=== PATIENT | female | born 1955 | race Caucasian/White ===

== ENCOUNTER 2022-05-11 22:32 | Inpatient (IN) | payer MEDICARE, BC ==
[~2022-05-11] VITALS: Ht 152.4 cm; Wt 104.3 kg
--- NOTE | 2022-05-11 23:08 | NUR ---
TO ER BED 9. [id number] C/O L LEG PAIN X4DAYS STAFF ALSO CONCERED OF LOW O2 SAT AT 80S. HX LUNG CANCER. PT AAOX4. NORMALLY AMBULATES WITH ASSISTANCE. ADÁN INPLACE FROM FACILITY. BREATHING IS EVEN AND NON LABORED, CONNECTED TO 2L O2 NASAL CANNULA, O2 SAT 94 NOTED. CONNECTED TO MONITOR. AWAITING MD ARREOLA
--- NOTE | 2022-05-12 00:02 | NUR ---
IV LINE ESTABLISHED, LAC 20G. BLOOD COLLECTED AND SENT TO LAB
--- NOTE | 2022-05-12 00:02 | NUR ---
COVID ANTIGEN SWAB COLLECTED
--- NOTE | 2022-05-12 00:03 | NUR ---
SANDEE VILLARREAL AT BEDSIDE FOR EKG
[2022-05-12 00:25] LABS: BASOPHILS % (AUTO) 0.3 % (0.0-2.0); HEMATOCRIT 29 % (39-51); HEMOGLOBIN 9.9 g/dL (13.5-17.5); LYMPHOCYTES # (AUTO) 2.1 K/uL (0.8-4.8); LYMPHOCYTES % (AUTO) 33.8 % (20.0-44.0); MEAN CORPUSCULAR HGB CONC 34 g/dl (31.0-36.0); MEAN CORPUSCULAR VOLUME 90 fL (80-96); MONOCYTES # (AUTO) 0.9 K/uL (0.1-1.30); MONOCYTES % (AUTO) 15.1 % (2.0-12.0); NEUTROPHILS # (AUTO) 3.1 K/uL (1.8-8.9); NEUTROPHILS % (AUTO) 49.8 % (43.0-81.0); PLATELET COUNT (AUTO) 270 K/uL (150-450); RED BLOOD CELL COUNT(AUTO) 3.24 MIL/uL (4.5-6.0); WHITE BLOOD COUNT (AUTO) 6.3 K/uL (4.3-11.0)
--- NOTE | 2022-05-12 00:41 | NUR ---
ULTRASOUND AT BEDSIDE
[2022-05-12 00:50] LABS: CALCIUM, SERUM 9.1 mg/dL (8.5-10.1); CARBON DIOXIDE 38 mmol/L (21-32); CHLORIDE 92 mmol/L (98-107); CREATININE 0.6 mg/dL (0.6-1.3); GLUCOSE 114 mg/dL (74-106); POTASSIUM 3.1 mmol/L (3.5-5.1); SODIUM SERUM 134 mmol/L (136-145); UREA NITROGEN, BLOOD 9 mg/dL (7-18)
[2022-05-12] MEDS ORDERED: POTASSIUM CHLORIDE 20 MEQ TAB.PRT.SR PO ONE (01:00)
[2022-05-12] MEDS ORDERED: CT SWABBABLE VALVE TRANS SET 1 EA INFUS.SET MC ONE (01:25)
[2022-05-12] MEDS ORDERED: IOHEXOL-350 100 ML VIAL IV ONE (01:25)
[2022-05-12] MEDS ORDERED: IV NS 0.9% 250 ML IV ONE (01:26)
--- NOTE | 2022-05-12 01:58 | NUR ---
PATIENT GOING TO RADIOLOGY
--- NOTE | 2022-05-12 01:58 | NUR ---
Maria Teresa handy in [facility] - 05/12/22 at 0158 by LINO XRAY AT BEDSIDE
[2022-05-12] MEDS ORDERED: MAG HYDROX/AL HYDROX/SIMETH 30 ML UDC PO PRN (02:30)
[2022-05-12] MEDS ORDERED: MAGNESIUM HYDROXIDE 30 ML UDC PO PRN ×2 (02:30→22:00)
[2022-05-12] MEDS ORDERED: ONDANSETRON HCL/PF 4 MG/2 ML VIAL IVP PRN (02:30)
[2022-05-12] MEDS ORDERED: Z GUARD REMEDY 4 OZ OINT TP PRN (02:30)
[2022-05-12] MEDS ORDERED: IV NS 0.9% 1,000 ML IV PRN (02:30)
[2022-05-12] MEDS ORDERED: ALBUTEROL FS 2.5 MG/3 ML VIAL.NEB NEB PRN (02:30)
--- NOTE | 2022-05-12 03:52 | NUR ---
PT'S SISTER KATHRYN UPDATED REGARDING HER SISTER. SHE IS AWARE THAT THE PATIENT IS GOING TO BE ADMITTED
[2022-05-12] MEDS ORDERED: VANCOMYCIN 1 GM VIAL ONE (04:00)
[2022-05-12] MEDS ORDERED: VANCOMYCIN 1 GM in IV D5W 250 ML IV ONE (04:00)
[2022-05-12] MEDS ORDERED: CEFEPIME 1 GM in IV D5W 50 ML IV ONE (04:00)
[2022-05-12] MEDS ORDERED: CEFEPIME 1 GM VIAL ONE (04:00)
[2022-05-12 05:07] LABS: BASOPHILS % (MANUAL) 0 % (0.0-2.0); EOSINOPHILS % (MANUAL) 1 % (0-4); LYMPHOCYTES % (MANUAL) 35 % (16-48); MONOCYTES % (MANUAL) 14 % (0-11.0); NEUTROPHILS % (MANUAL) 50 (42-76)
--- NOTE | 2022-05-12 05:49 | NUR ---
PT AMBULATED TO BATHROOM WITH ASSISTANCE , STEADY GAIT NOTED
[2022-05-12] MEDS ORDERED: MORPHINE SULFATE INJ 2 MG/ML DISP.SYRIN ONE (05:58)
[2022-05-12] MEDS: MORPHINE SULFATE INJ 2 MG/ML DISP.SYRIN IV PRN ×2 (06:06→16:03)
--- NOTE | 2022-05-12 06:43 | NUR ---
REPORT GIVEN TO RADHA JIMÉNEZ FOR SONAM
--- NOTE | 2022-05-12 08:10 | NUR ---
THE PATIENT IS TAKEN TO ROOM 324-1 IN STABLE CONDITION AND PER ACLS POLICY.
--- NOTE | 2022-05-12 08:30 | NUR ---
ADMISSION NOTE Received patient via gurney from ER. Patient is A/O x 2-3, able to make needs known. On O2 at 2 LPM. breathing evenly and unlabored. No SOB or s/s of distress noted. IV Access on LAC #18 intact and patent. Patient oriented to room and how to use the call light. Belongings accounted for. Skin assessment done, Bilateral feet discoloration noted. Photos taken and placed in chart. Wound consult requested. Tele box connected, showing SR, HR 99. VS as follows: BP 115/70, HR 82, RR 16, Temp 97.5, SPO2 98%. Safety precautions in place: bed in low, locked position; siderails up x 2; call light within reach. Will continue to monitor. Addendum: 05/12/22 at 1116 by GENO BELTRAN RN ADD: Winslow catheter in place draining to a yellow colored urine.
[2022-05-12] MEDS ORDERED: ENOXAPARIN SODIUM 40 MG/0.4 ML DISP.SYRIN SQ SCH (09:00)
[2022-05-12] MEDS: PANTOPRAZOLE 40 MG TABLET.DR PO SCH (09:03)
[2022-05-12] MEDS ORDERED: LEVO50TA8 PO (09:10)
[2022-05-12] MEDS ORDERED: CETI-108 PO (09:10)
[2022-05-12] MEDS ORDERED: NA P133E RC (09:10)
[2022-05-12] MEDS ORDERED: LEVE500T9 PO (09:10)
[2022-05-12] MEDS ORDERED: FLUT16SP16 (09:10)
[2022-05-12] MEDS ORDERED: MAGN400O6 PO (09:10)
[2022-05-12] MEDS ORDERED: DICL100G26 TP (09:10)
[2022-05-12] MEDS ORDERED: FAMO20TA8 PO (09:10)
[2022-05-12] MEDS ORDERED: AMIN30LI2 PO (09:10)
[2022-05-12] MEDS ORDERED: FURO-145 PO (09:10)
[2022-05-12] MEDS ORDERED: POTA10TA11 PO (09:10)
[2022-05-12] MEDS ORDERED: ENOX40DI SQ (09:10)
[2022-05-12] MEDS ORDERED: BISA10SU11 RC (09:10)
[2022-05-12] MEDS ORDERED: DOCU-141 PO (09:10)
[2022-05-12] MEDS ORDERED: ACET-868 PO (09:10)
[2022-05-12] MEDS ORDERED: METO2.5T2 PO (09:10)
[2022-05-12] MEDS ORDERED: CRAN425C6 PO (09:10)
[2022-05-12] MEDS ORDERED: BISACODYL SUPP (10 MG) 10 MG/SUPP.RECT SUPP.RECT RC PRN (10:30)
[2022-05-12] MEDS ORDERED: NA PHOS,M-B/NA PHOS,DI-BA 1 EA ENEMA RC PRN (10:30)
[2022-05-12] MEDS ORDERED: ACETAMINOPHEN 325 MG TABLET PO PRN (10:30)
--- NOTE | 2022-05-12 14:04 | NUR ---
RN NOTE Patient complaining of pain on left leg and right shoulder. Notified Dr. Weber and he ordered Morphine 2 mg IV q4h PRN. Patient has documented allergy to codeine. Per patient, she was given Morphine this AM and didn't have any bad reactions to the medication.
[2022-05-12] MEDS ORDERED: MORPHINE SULFATE INJ 2 MG/ML DISP.SYRIN IV PRN (14:30)
[2022-05-12] MEDS: POTASSIUM CHLORIDE 10 MEQ TABLET.SA PO SCH (17:16)
[2022-05-12] MEDS: FUROSEMIDE 20 MG TABLET PO SCH (17:16)
[2022-05-12] MEDS: DOCUSATE SODIUM 100 MG CAPSULE PO SCH (17:16)
--- NOTE | 2022-05-12 17:45 | NUR ---
RN NOTE Per Baljeet, potline monitor, patient had a 10-second SVT. Checked patient, denies any chest pain but does feel a little dizzy. VS as follows: BP 125/72, HR 111, RR 18, Temp 38.2, SPO2 97%. EKG done. Dr. diamond and Dr. reilly notified, no new orders.
--- NOTE | 2022-05-12 19:00 | NUR ---
RN NOTE Dr. Weber and Dr. Roblero notified about EKG result.
--- NOTE | 2022-05-12 19:26 | NUR ---
DIRECTOR PACKAGING CLOSING NOTE Patient in bed, resting comfortably. A/O x 2-3, able to make needs known. On O2 at 3 LPM via NC, breathing evenly and unlabored. No SOB or s/s of distress noted. IV access on LAC #18 SL, intact and patent. Winslow catheter in place draining to a yellow colored urine with an output of 850 cc. Due meds given. All needs attended to. Safety precautions maintained: bed in low, locked position; siderails up x 2; call light within reach. Will endorse to ethics officer nurse for SONAM. Addendum: 05/12/22 at 1931 by GENO BELTRAN RN ADD: On tele monitoring showing sinus tachyardia with occasional PACs, HR 105.
[2022-05-12 20:00] VITALS: BP 126/73
[2022-05-12] MEDS: cetrizine 10 MG TABLET PO SCH (21:11)
[2022-05-12] MEDS: ENOXAPARIN SODIUM 40 MG/0.4 ML DISP.SYRIN SQ SCH (21:13)
--- NOTE | 2022-05-12 22:19 | NUR ---
BIOFUELS PRODUCT MANAGER OPENING NOTE Patient in bed, resting comfortably. A/O x 2-3, able to make needs known. On O2 at 2 LPM via NC, breathing evenly and unlabored. No SOB or s/s of distress noted. IV access on LAC #18 SL, intact and patent. Winslow catheter in place draining to a yellow colored urine with an output. All needs attended to. Safety precautions maintained: bed in low, locked position; buyer intern rails up x 2; call light within reach. pt on tele monitor showing sinus tachycardia Will continue to monitor.
[2022-05-12 23:42] VITALS: BP 142/82
[2022-05-13 04:00] VITALS: BP 127/90
[2022-05-13 06:23] LABS: BASOPHILS % (AUTO) 0.2 % (0.0-2.0); EOSINOPHILS % (AUTO) 1.2 % (0.0-6.0); HEMATOCRIT 30 % (33-45); LYMPHOCYTES # (AUTO) 2.3 K/uL (0.8-4.8); LYMPHOCYTES % (AUTO) 36.1 % (20.0-44.0); MEAN CORPUSCULAR HGB CONC 33 g/dl (31.0-36.0); MEAN CORPUSCULAR VOLUME 91 fL (82-100); MONOCYTES # (AUTO) 0.9 K/uL (0.1-1.30); MONOCYTES % (AUTO) 14.9 % (2.0-12.0); NEUTROPHILS % (AUTO) 47.6 % (43.0-81.0); PLATELET COUNT (AUTO) 273 K/uL (150-450); RED BLOOD CELL COUNT(AUTO) 3.28 MIL/uL (4.0-5.2); WHITE BLOOD COUNT (AUTO) 6.3 K/uL (4.3-11.0)
--- NOTE | 2022-05-13 06:26 | NUR ---
PET SITTER CLOSING NOTE Patient in bed, resting comfortably. A/O x 2-3, able to make needs known. On O2 at 2 LPM via NC, breathing evenly and unlabored. No SOB or s/s of distress noted. IV access on LAC #18 SL, intact and patent. Winslow catheter in place draining to a yellow colored urine with an output. All needs attended to. Safety precautions maintained: bed in low, locked position; agility instructor rails up x 2; call light within reach. pt on tele monitor showing sinus tachycardia Will endorse care to day shift nurse.
[2022-05-13 07:15] LABS: CALCIUM, SERUM 9.1 mg/dL (8.5-10.1); CREATININE 0.6 mg/dL (0.6-1.3); MAGNESIUM 1.6 mg/dL (1.8-2.4); PHOSPHORUS 4.5 mg/dL (2.5-4.9); POTASSIUM 3.5 mmol/L (3.5-5.1)
[2022-05-13] MEDS: LEVOTHYROXINE SODIUM 50 MCG TABLET PO SCH (07:24)
[2022-05-13] MEDS: PANTOPRAZOLE 40 MG TABLET.DR PO SCH ×2 (07:24→17:18)
[2022-05-13] MEDS: FAMOTIDINE (20 MG) 20 MG TABLET PO SCH (07:25)
--- NOTE | 2022-05-13 07:47 | NUR ---
OXYGEN TANK FILLER OPENING NOTES RECEIVED PATIENT AWAKE IN BED. PATIENT IS A/O TIMES 3. NO PAIN NOTED. NO SOB NOTED. NO DISTRESS NOTED. ON O2 INHALATION VIA NASAL CANNULA TOLERATING WELL. ON TELE MONITOR READING SR. ON MCCAIN CATHETER. DRAINING YELLOW COLOR URINE. LAC IV G# 18 INTACT. FLUSHING WELL. ALL SAFETY MEASURES IN PLACE . BED LOCKED IN THE LOWEST POSITION. CALL LIGHT AND TABLE IN REACH. WILL CONTINUE TO MONITOR.
[2022-05-13 07:54] LABS: THYROID STIMULATING HORMONE 1.546 uIU/mL (0.358-3.74)
[2022-05-13 08:00] VITALS: BP 134/88
[2022-05-13] MEDS: FUROSEMIDE 20 MG TABLET PO SCH ×2 (08:26→17:19)
[2022-05-13] MEDS: POTASSIUM CHLORIDE 10 MEQ TABLET.SA PO SCH ×2 (08:26→17:18)
[2022-05-13] MEDS: LEVETIRACETAM (250 MG) 250 MG TABLET PO SCH (08:27)
[2022-05-13] MEDS: METOLAZONE 2.5 MG TABLET PO SCH (08:27)
[2022-05-13] MEDS: ENOXAPARIN SODIUM 40 MG/0.4 ML DISP.SYRIN SQ SCH ×2 (08:28→21:24)
[2022-05-13] MEDS ORDERED: Medication Not On Formulary EA (Levetiracetam (Keppra) 500 MG) PO SCH (09:00)
[2022-05-13] MEDS: Magnesium 1GM/D5W 100ML PREMIX 100 ML IV SCH ×2 (10:34→12:27)
[2022-05-13] MEDS: METOPROLOL TARTRATE 50 MG TABLET PO SCH ×2 (10:54→21:22)
[2022-05-13 11:46] LABS: ABG BASE EXCESS 9.5 mmol/L; ABG OXYGEN SATURATION 86.4 % (92.0-98.5); ABG PH 7.488 (7.350-7.450); ABG PO2 53.7 mmHg (75.0-100.0); AaDO2 40.9 mmHg; COHb 1.2 % (0.5-1.5); MetHb 0.2 % (0.0-1.5); O2Hb 85.2 % (94.0-97.0); SITE, ABG Left Radial; VENT MODE, BG ROOM AIR
[2022-05-13 12:00] VITALS: BP 128/66
--- NOTE | 2022-05-13 12:10 | NUR ---
RT PLACE THE PT. ON [address] RDZ POST ABG
--- NOTE | 2022-05-13 12:59 | NUR ---
TEXT DR. MARTIN FOR MRI APPROVAL.
[2022-05-13 13:05] LABS: IRON, SERUM 35 ug/dl (50-175); TOTAL IRON BINDING CAPACITY 206 ug/dl (250-450)
[2022-05-13 13:19] LABS: FERRITIN 221 ng/mL (8-388)
--- NOTE | 2022-05-13 15:00 | NUR ---
RN NOTES KERWIN MIDDLETON ORDERED MRI OF THE BRAIN WITH/WITHOUT CONTRAST, MRI OF THE LUMBAR SPINE WITH CONTRAST AND MRI OF THORACIC WITH CONTRAST. PATIENT AND SISTER REFUSED TO SIGN, SINCE SISTER KATHRYN WANTED TO FIRST AGRICULTURAL INSPECTOR CONSULT WITH PATIENT'S RADIOLOGY ONCOLOGIST DR. EMILIANO MAZA WITH PHONE NUMBER [phone]. KERWIN MIDDLETON CALLED DR CUMMINGS AND GOT CONFIRMATION FOR APPROVAL OF THE TEST. ALSO KERWIN MIDDLETON SPOKE WITH KATHRYN THE SISTER. FINALLY PATIENT AND SISTER AGREED TO SIGN THE CONSENT FOR MRI. CONSENT SIGNED AND KEPT IN THE CHART.
[2022-05-13 16:00] VITALS: BP 100/61
[2022-05-13] MEDS: DEXAMETHASONE SOD PHOSPHATE 10 MG/ML VIAL IV SCH ×2 (17:18→23:16)
[2022-05-13] MEDS: DOCUSATE SODIUM 100 MG CAPSULE PO SCH (17:18)
--- NOTE | 2022-05-13 18:27 | NUR ---
ELECTRICAL WORKER CLOSING NOTES PATIENT AWAKE IN BED. PATIENT IS A/O TIMES 3 WITH EPISODES OF CONFUSIONS. NO PAIN NOTED. NO SOB NOTED. NO DISTRESS NOTED. ON O2 INHALATION VIA NASAL CANNULA AT 1 L/MIN. TOLERATING WELL. ON TELE MONITOR READING SR 106. ON MCCAIN CATHETER. DRAINING YELLOW COLOR URINE.URINE OUTPUT 800 ML. LAC IV G# 18 INTACT. FLUSHING WELL.ALL DUE MEDS GIVEN ORDERED. ALL SAFETY MEASURES IN PLACE . BED LOCKED IN THE LOWEST POSITION. CALL LIGHT AND TABLE IN REACH. ASPIRATION PRECAUTION. KEPT HOB ELEVATED.WILL ENDORSE FOR SONAM.
--- NOTE | 2022-05-13 19:25 | NUR ---
RN OPENING NOTE PATIENT IN BED, AWAKE. PATIENT IS ABLE TO MAKE NEEDS KNOWN. PATIENT IS A/O X 2-3 AT THIS TIME, ABLE TO MAKE NEEDS KNOWN. PATIENT IS ON 1 LPM, TOLERATING WELL. PATIENT NOTED TO HAVE SOB WITH EXERTION, O2 SAT 96%. PATIENT HAS A MCCAIN CATHETER IN PLACE DRAINING VIA GRAVITY. LAC 18 G SALINE LOCKED AT THIS TIME, FLUSHING WELL. NO REPORTS OF PAIN AT THIS TIME. TELE MONITOR READS ST 123 BPM. SAFETY MEASURES IN PLACE:BED LOCKED AND IN LOWEST POSITION, CALL LIGHT WITHIN REACH, SIDE RAILS UP. WILL MONITOR PATIENT CLOSELY.
[2022-05-13 20:00] VITALS: BP 151/73
[2022-05-13] MEDS: cetrizine 10 MG TABLET PO SCH (21:23)
[2022-05-14] VITALS: BP 148/82
[2022-05-14 04:00] VITALS: BP 128/72
[2022-05-14] MEDS: DEXAMETHASONE SOD PHOSPHATE 10 MG/ML VIAL IV SCH ×4 (05:06→23:49)
[2022-05-14 06:21] LABS: HEMATOCRIT 32 % (33-45); HEMOGLOBIN 10.5 g/dL (11.5-14.8); LYMPHOCYTES # (AUTO) 1.1 K/uL (0.8-4.8); MEAN CORPUSCULAR HGB CONC 33 g/dl (31.0-36.0); MEAN CORPUSCULAR VOLUME 90 fL (82-100); MONOCYTES # (AUTO) 0.2 K/uL (0.1-1.30); MONOCYTES % (AUTO) 4.1 % (2.0-12.0); NEUTROPHILS # (AUTO) 3.6 K/uL (1.8-8.9); NEUTROPHILS % (AUTO) 72.9 % (43.0-81.0); PLATELET COUNT (AUTO) 281 K/uL (150-450); RED BLOOD CELL COUNT(AUTO) 3.52 MIL/uL (4.0-5.2); WHITE BLOOD COUNT (AUTO) 4.9 K/uL (4.3-11.0)
[2022-05-14 06:27] LABS: CALCIUM, SERUM 9.4 mg/dL (8.5-10.1); CREATININE 0.6 mg/dL (0.6-1.3); MAGNESIUM 2.2 mg/dL (1.8-2.4); PHOSPHORUS 4.2 mg/dL (2.5-4.9); POTASSIUM 3.8 mmol/L (3.5-5.1)
[2022-05-14] MEDS: LEVOTHYROXINE SODIUM 50 MCG TABLET PO SCH (07:34)
[2022-05-14] MEDS: PANTOPRAZOLE 40 MG TABLET.DR PO SCH ×2 (07:34→16:15)
[2022-05-14] MEDS: FAMOTIDINE (20 MG) 20 MG TABLET PO SCH (07:34)
--- NOTE | 2022-05-14 07:42 | NUR ---
WARD ASSISTANT OPENING NOTES RECEIVED PATIENT AWAKE IN BED. PATIENT IS A/O TIMES 3. NO PAIN NOTED. NO SOB NOTED. NO DISTRESS NOTED. ON O2 INHALATION VIA NASAL CANNULA TOLERATING WELL ON 1 L/MIN. ON TELE MONITOR READING SR. ON MCCAIN CATHETER. DRAINING YELLOW COLOR URINE. LAC IV G# 18 INTACT. FLUSHING WELL. ALL SAFETY MEASURES IN PLACE . BED LOCKED IN THE LOWEST POSITION. CALL LIGHT AND TABLE IN REACH. WILL CONTINUE TO MONITOR.
[2022-05-14 08:00] VITALS: BP 130/72
[2022-05-14 08:06] LABS: IMMUNOGLOBULIN A, SERUM 447 mg/dL (87-352); IMMUNOGLOBULIN G, SERUM 1070 mg/dL (586-1602); IMMUNOGLOBULIN M, SERUM 97 mg/dL (26-217)
[2022-05-14] MEDS: LEVETIRACETAM (250 MG) 250 MG TABLET PO SCH (08:37)
[2022-05-14] MEDS: METOPROLOL TARTRATE 50 MG TABLET PO SCH ×2 (08:37→22:05)
[2022-05-14] MEDS: POTASSIUM CHLORIDE 10 MEQ TABLET.SA PO SCH ×2 (08:37→16:15)
[2022-05-14] MEDS: FUROSEMIDE 20 MG TABLET PO SCH ×2 (08:37→16:15)
[2022-05-14] MEDS: ENOXAPARIN SODIUM 40 MG/0.4 ML DISP.SYRIN SQ SCH (08:38)
[2022-05-14] MEDS: METOLAZONE 2.5 MG TABLET PO SCH (08:39)
[2022-05-14] MEDS: ACETAMINOPHEN 325 MG TABLET PO PRN (08:47)
[2022-05-14] MEDS: DILTIAZEM HCL CD 240 MG PO SCH (08:56)
--- NOTE | 2022-05-14 10:23 | NUR ---
WOUND CARE CONSULT: PT OFF UNIT AT THIS TIME. WILL SEE PT PT CONDITION PERMITS.
[2022-05-14] MEDS ORDERED: GADOTERATE MEGLUMINE 10 MMOL/20 ML VIAL IV ONE (11:18)
[2022-05-14 16:00] VITALS: BP 118/56
[2022-05-14 16:07] LABS: *SPE A/G RATIO 0.8 (0.7-1.7); *SPE ALPHA-1-GLOBULIN 0.5 g/dL (0.0-0.4); *SPE BETA GLOBULIN 1.2 g/dL (0.7-1.3); *SPE M-SPIKE Not Observed g/dL (Not Observed)
[2022-05-14] MEDS: DOCUSATE SODIUM 100 MG CAPSULE PO SCH (17:12)
--- NOTE | 2022-05-14 18:37 | NUR ---
EMPLOYEE DEVELOPMENT MANAGER CLOSING NOTES PATIENT AWAKE IN BED. PATIENT IS A/O TIMES 3. NO PAIN NOTED. NO SOB NOTED. NO DISTRESS NOTED. ON O2 INHALATION VIA NASAL CANNULA TOLERATING WELL ON 1 L/MIN. ON TELE MONITOR READING SR. ON MCCAIN CATHETER. DRAINING YELLOW COLOR URINE. OUTPUT 750 ML.LAC IV G# 18 INTACT. FLUSHING WELL. ALL DUE MEDS GIVEN ORDERED. ALL SAFETY MEASURES IN PLACE . BED LOCKED IN THE LOWEST POSITION. CALL LIGHT AND TABLE IN REACH. WILL ENDORSE FOR SONAM.
--- NOTE | 2022-05-14 19:25 | NUR ---
RN OPENING NOTE PATIENT IN BED, AWAKE. PATIENT IS ABLE TO MAKE NEEDS KNOWN. PATIENT IS A/O X 2-3 AT THIS TIME, ABLE TO MAKE NEEDS KNOWN. PATIENT IS ON 1 LPM, TOLERATING WELL. PATIENT NOTED TO HAVE SOB WITH EXERTION, O2 SAT 94% AT THIS TIME. PATIENT HAS A MCCAIN CATHETER IN PLACE DRAINING VIA GRAVITY. LAC 18 G SALINE LOCKED AT THIS TIME, FLUSHING WELL. NO REPORTS OF PAIN AT THIS TIME. TELE MONITOR READS SR 82 BPM. SAFETY MEASURES IN PLACE:BED LOCKED AND IN LOWEST POSITION, CALL LIGHT WITHIN REACH, SIDE RAILS UP. WILL MONITOR PATIENT CLOSELY.
[2022-05-14 20:00] VITALS: BP 119/76
[2022-05-14] MEDS: cetrizine 10 MG TABLET PO SCH (22:05)
--- NOTE | 2022-05-14 23:59 | NUR ---
R HAND 22 G INSERTED. PATENT AND INTACT.
[2022-05-15] VITALS: BP 118/60
[2022-05-15] MEDS: ACETAMINOPHEN 325 MG TABLET PO PRN (00:16)
--- NOTE | 2022-05-15 00:16 | NUR ---
TYLENOL GIVEN FOR MILD PAIN ON THE R SHOULDER. WILL REASSESS PAIN AT A LATER TIME
[2022-05-15 01:08] LABS: OCCULT BLOOD STOOL NEGATIVE (NEGATIVE)
[2022-05-15 04:00] VITALS: BP 125/71
[2022-05-15] MEDS: DEXAMETHASONE SOD PHOSPHATE 10 MG/ML VIAL IV SCH ×4 (05:26→23:31)
--- NOTE | 2022-05-15 06:54 | NUR ---
RN CLOSING NOTE PATIENT IN BED, EYES CLOSED, EASILY AWAKENED. PATIENT IS ABLE TO MAKE NEEDS KNOWN. PATIENT IS A/O X 3 AT THIS TIME, ABLE TO MAKE NEEDS KNOWN. PATIENT IS ON 1 LPM, TOLERATING WELL. PATIENT NOTED TO HAVE SOB WITH EXERTION, O2 SAT 94% AT THIS TIME. PATIENT HAS A MCCAIN CATHETER IN PLACE DRAINING VIA GRAVITY. R HAND 22 G SALINE LOCKED AT THIS TIME, FLUSHING WELL. NO REPORTS OF PAIN AT THIS TIME. TELE MONITOR READS SR 68 BPM. SAFETY MEASURES IN PLACE:BED LOCKED AND IN LOWEST POSITION, CALL LIGHT WITHIN REACH, SIDE RAILS UP. ALL NEEDS MET AND ATTENDED. ALL ORDERS CARRIED OUT. WILL ENDORSE TO DAY SHIFT NURSE FOR SONAM.
--- NOTE | 2022-05-15 07:16 | NUR ---
CLOTHES SHAKER OPENING NOTE PATIENT IN BED AWAKE. PATIENT IS ALERT/ ORIENTED X 1-2, ABLE TO MAKE NEEDS KNOWN. SHE IS ON O2 AT PATIENT IS ON 1 LPM, WITH EQUAL AND UNLABORED BREATHINIG TOLERATING WELL. NO COMPLAIN OF DISCOMFORT AT THIS TIME. WITH MCCAIN CATHETER CONNECTED TO URINE BAG DRAINING VIA GRAVITY WITH LIGHT YELLOW URINE. WITH RIGHT HAND G22 IV ACCESS ON SALINE LOCK, FLUSHING WELL. PATIENT ON TELE MONITOR READS SR 80'S BPM. SAFETY MEASURES IN PLACE: BED LOCKED AND IN LOWEST POSITION, CALL LIGHT WITHIN REACH, SIDE RAILS UP. WILL CONTINUE TO MONITOR PATIENT.
[2022-05-15 08:00] VITALS: BP 117/68
--- NOTE | 2022-05-15 08:01 | NUR ---
PATIENT TRANSITION SPECIALIST NOTE SEEN BY DR. BOSWELL. NOT IN DISTRESS. IN STABLE CONDITION.
--- NOTE | 2022-05-15 08:32 | NUR ---
FREIGHT FLAGMAN NOTE SEEN BY DR. BOSWELL. IN STABLE CONDITION.
[2022-05-15] MEDS: LEVETIRACETAM (250 MG) 250 MG TABLET PO SCH (08:56)
[2022-05-15] MEDS: FAMOTIDINE (20 MG) 20 MG TABLET PO SCH (08:56)
[2022-05-15] MEDS: PANTOPRAZOLE 40 MG TABLET.DR PO SCH ×2 (08:56→16:40)
[2022-05-15] MEDS: METOPROLOL TARTRATE 50 MG TABLET PO SCH ×2 (08:57→21:06)
[2022-05-15] MEDS: DILTIAZEM HCL CD 240 MG PO SCH ×2 (08:58→09:32)
--- NOTE | 2022-05-15 09:01 | NUR ---
WOUND CARE CONSULT: PT PRESENTS WITH SOME AREAS OF DISCOLORATION, PRESENT ON ADMISSION. DISCUSSED SKIN PROTECTION WITH NURSING STAFF. MD IN AGREEMENT WITH PLAN OF CARE.
[2022-05-15] MEDS: LEVOTHYROXINE SODIUM 50 MCG TABLET PO SCH (09:27)
[2022-05-15] MEDS: POTASSIUM CHLORIDE 10 MEQ TABLET.SA PO SCH ×2 (09:28→16:40)
[2022-05-15] MEDS: FUROSEMIDE 20 MG TABLET PO SCH ×2 (09:29→16:40)
[2022-05-15] MEDS: METOLAZONE 2.5 MG TABLET PO SCH (09:33)
--- NOTE | 2022-05-15 09:50 | NUR ---
MS RN NOTE PATIENT SEEN BY DR. PEPE. IN STABLE CONDITION.
--- NOTE | 2022-05-15 11:06 | NUR ---
MS RN NOTE SEEN BY KERWIN MIDDLETON OF [facility] DEPARTMENT. EXPLAINED LATEST MRI AND LAB RESULTS. PATIENT VERBALIZED UNDERSTANDING AND APPRECIATION.
[2022-05-15 16:00] VITALS: BP 122/74
[2022-05-15] MEDS: DOCUSATE SODIUM 100 MG CAPSULE PO SCH (16:47)
--- NOTE | 2022-05-15 18:38 | NUR ---
MS RN CLOSING NOTES: PATIENT IN ASLEEP BUT EASILY ROUSED, ALERT/ORIENTED X3 ABLE TO MAKE NEEDS KNOWN. PATIENT IS ON 1L O2 VIA NC WITH EQUAL AND UNLABORED BREATHING TOLERATING WELL. NO S/S OF SOB AND ACUTE DISTRESS NOTED. PT IS ON MCCAIN CATH DRAINING CLEAR, YELLOW URINE. IV ACCESS OF LEFT HAND #22, SALINE LOCK, FLUSHING WELL. SAFETY MEASURES IN PLACE: BED LOCKED AND IN LOWEST POSITION, CALL LIGHT AND TABLE WITHIN REACH. NEEDS MET, WILL ENDORSE TO NEXT SHIFT.
--- NOTE | 2022-05-15 19:30 | NUR ---
MS RN OPENING NOTE RECEIVED PT IN BED AWAKE, ALERT/ ORIENTED X 3, ABLE TO MAKE NEEDS KNOWN. ON O2 VIA NC AT 1 LPM, TOLERATING WELL. NO S/SX OF ACUTE DISTRESS NOTED AT THIS TIME. WITH MCCAIN CATHETER CONNECTED TO URINE BAG DRAINING VIA GRAVITY WITH LIGHT YELLOW URINE. WITH LEFT HAND G22 IV ACCESS ON SALINE LOCK, FLUSHING WELL. ALL SAFETY MEASURES IN PLACE: BED LOCKED AND IN LOWEST POSITION, CALL LIGHT WITHIN REACH, SIDE RAILS UP. WILL CONTINUE TO MONITOR PATIENT.
--- NOTE | 2022-05-15 19:55 | NUR ---
RN NOTE PT COMPLAINS OF PAIN IN HER LEG AND THE BACK. CHECKED PT'S VS, ALL STABLE AND WNL. PAIN MEDS GIVEN ORDERED. WILL CLOSELY MONITOR PT.
[2022-05-15 20:00] VITALS: BP 115/66
[2022-05-15] MEDS: cetrizine 10 MG TABLET PO SCH (21:06)
[2022-05-16] MEDS: DEXAMETHASONE SOD PHOSPHATE 10 MG/ML VIAL IV SCH ×2 (06:05→11:42)
--- NOTE | 2022-05-16 07:15 | NUR ---
MS RN OPENING NOTES RECEIVED PATIENT AWAKE IN BED RESTING. A/O X3. PATIENT ON 2L OF O2 VIA NC. NO S/S OF SOB OR DISCOMFORT. PATIENT HAS L HAND #22G SL, INTACT AND PATENT, NO S/S OF INFILTRATION. MCCAIN IN PLACE DRAINING CLEAR AND YELLOW. AMBULATORY WITH ASSISTANCE. SKIN BILATERAL FEET DISCOLORATION. SAFETY MEASURES IN PLACE: BED IN LOWEST POSITION, SIDE RAILS UP X2, HOB ELEVATED, AND CALL LIGHT WITHIN REACH. WILL CONTINUE TO MONITOR.
[2022-05-16] MEDS: FAMOTIDINE (20 MG) 20 MG TABLET PO SCH (07:49)
[2022-05-16] MEDS: LEVOTHYROXINE SODIUM 50 MCG TABLET PO SCH (07:49)
[2022-05-16] MEDS: PANTOPRAZOLE 40 MG TABLET.DR PO SCH (07:49)
[2022-05-16 08:00] VITALS: BP 115/65
[2022-05-16] MEDS: ACETAMINOPHEN 325 MG TABLET PO PRN ×2 (08:28→16:28)
[2022-05-16] MEDS: POTASSIUM CHLORIDE 10 MEQ TABLET.SA PO SCH (08:31)
[2022-05-16] MEDS: METOPROLOL TARTRATE 50 MG TABLET PO SCH (08:31)
[2022-05-16] MEDS: FUROSEMIDE 20 MG TABLET PO SCH (08:31)
[2022-05-16] MEDS: METOLAZONE 2.5 MG TABLET PO SCH (08:31)
[2022-05-16] MEDS: LEVETIRACETAM (250 MG) 250 MG TABLET PO SCH (08:31)
[2022-05-16] MEDS ORDERED: METO50TA16 PO (09:24)
[2022-05-16] MEDS ORDERED: DEXA4TAB68 PO (09:24)
--- NOTE | 2022-05-16 15:50 | NUR ---
RN NOTES SPOKE TO SISTER KATHRYN, CONFIRMED MEDICATIONS ON HAND AT HOME FOR PATIENT. RECEIVED PREFERRED PHARMACY, TO BE [facility] [address] [place] [address], [place], [address]. [email or web address] FAXED MEDICATIONS THAT NEED TO BE FILLED AND CONFIRMED WITH PHARMACIST KIMBERLEE THAT FAX WAS RECEIVED. MEDICATIONS CONFIRMED AND WILL BE READY FOR EXECUTIVE CHAIRMAN OF THE BOARD.
[2022-05-16 16:00] VITALS: BP 114/66
--- NOTE | 2022-05-16 16:40 | NUR ---
CURTAIN FELLER BLINDSTITCH NOTES PATIENT DISCHARGED TO HOME IN STABLE CONDITION, A/O3-4, ABLE TO MAKE NEEDS KNOWN, V/S TAKEN AND STABLE AND RECORDED. PHOTOS OF SKIN ISSUES TAKEN AND FILED IN CHART. MCCAIN CATHETER REMOVED WITHOUT PROBLEM, PATIENT VOIDED AFTER. IV ACCESS REMOVED L HAND #22G, WITHOUT BLEEDING, PRESSURE DRESSING APPLIED AT SIGHT. HEALTH/MEDICATION AND DISCHARGE TEACHINGS GIVEN, PATIENT VERBALIZED UNDERSTANDING. PATIENT LEFT UNIT @1640 ACCOMPANIED BY 3 EMS IN STABLE CONDITION.
== END 2022-05-16 17:30 | disposition home health service (06) | DRG 180 ==
LOC: ER 22:51 → TRANSITION 05-12 05:26 → EDSEX 05-12 05:26 → TELE 05-12 06:20 → MED 05-15 10:14
PROVIDERS: ADMIT Internal Medicine; ATTEND Internal Medicine
DX: C34.90 Malignant neoplasm of unspecified part of unspecified bronchus or lung (principal); J96.91 Respiratory failure, unspecified with hypoxia; C79.31 Secondary malignant neoplasm of brain; Z68.41 Body mass index [BMI] 40.0-44.9, adult; E66.2 Morbid (severe) obesity with alveolar hypoventilation; I47.1 Supraventricular tachycardia; C79.51 Secondary malignant neoplasm of bone; E87.6 Hypokalemia; Z86.73 Personal history of transient ischemic attack (TIA), and cerebral infarction without residual deficits; E03.9 Hypothyroidism, unspecified; K21.9 Gastro-esophageal reflux disease without esophagitis; G40.909 Epilepsy, unspecified, not intractable, without status epilepticus; G47.33 Obstructive sleep apnea (adult) (pediatric); D63.0 Anemia in neoplastic disease; Z20.822 Contact with and (suspected) exposure to COVID-19
CPT/HCPCS: 36415; 36600; 70553-TC; 71045-TC; 72157-TC; 72158-TC; 80048-TC; 82272-TC; 82378; 82607-TC; 82728-TC; 82784; 82803-TC; 83540-TC; 83605-TC; 83735-TC; 84100-TC; 84155; 84165; 84443-TC; 84484-TC; 85025-TC; 85378-TC; 86334; 87040-TC; 87081-TC; 93307-TC; 93970-TC; 94799-TC; 97116-TC; 97530-TC; A9575; C9803; G0378; J0692; J1100; J1650; J2270; J2405; J3370; J3475; J7030; J7050; J7060; Q9967